=== PATIENT | female | born 1980 | race Caucasian/White ===

== ENCOUNTER 2016-05-19 17:48 | Emergency (ER) | payer OTHER ==
[2016-05-19] MEDS ORDERED: Diphtheria,Pertussis(Acell),Tetanus Vaccine 0.5 ML SDV IM ONE (18:16)
[2016-05-19 18:21] VITALS: BP 118/67
--- NOTE | 2016-05-19 18:21 | EDM.PDOC ---
ED HPI Trauma - General Chief Complaint: Lower Extremity Injury/Pain Stated Complaint: STEPPED ON NAIL Time Seen by Provider: 05/19/16 18:17 Source: Reports: Patient History Limitations: Reports: No limitations - History of Present Illness INITIAL COMMENTS - FREE TEXT/NARRATIVE: PT STATES SHE STEPPED ON NAIL THIS AFTERNOON. NAIL WAS EXPOSED THRU BOARD AND WAS OLD/ELISABETH. WAS WEARING TENNIS SHOES. DENIES ANY OTHER INJURY Occurred When: this afternoon Occurred Where: home Method of Injury: other (STEPPED ON NAIL) Severity: mild Pain/Injury Location: Reports: lower extremity, right Consciousness: Reports: no loss of consciousness Associated Symptoms: Reports: no other symptoms Allergies/ADRs: Allergies No Known Drug Allergies Allergy (Verified 05/19/16 18:21) Cannot Remember Home Medications: Ambulatory Orders Amoxicillin/Clavulanate K [Augmentin 875 MG/125 MG] 1 tab PO Q12HR #14 tablet Review of Systems - Review of Systems Review Of Systems: ROS reveals no pertinent complaints other than HPI. Constitutional: Reports: no symptoms Eyes: Reports: no symptoms Ears: Reports: no symptoms Nose: Reports: no symptoms Mouth/Throat: Reports: no symptoms Respiratory: Reports: No Symptoms Cardiovascular: Reports: no symptoms GI/Abdominal: Reports: No symptoms Genitourinary: Reports: no symptoms Musculoskeletal: Reports: no symptoms Skin: Reports: wound (DORSAL RIGHT FOOT DISTAL ASPECT). Denies: erythema Neurological: Reports: No Symptoms Psychiatric: Reports: no symptoms Trauma Exam - Physical Exam Exam: See Below Exam Limited By: No limitations General Appearance: Reports: alert, WD/WN, no apparent distress Head: Reports: atraumatic, normocephalic Throat/Mouth: Reports: Normal inspection, Normal oropharynx, No airway compromise Respiratory Exam: Reports: no respiratory distress Extremities: Reports: other (PUNCTURE WOUND AT DISTAL DORSAL ASPECT OF RIGHT FOOT. NO ERYTHEMA/ECCHYMOSIS/ EDEMA NOTED) Neurologic: Reports: alert, normal mood/affect, oriented x 3 Skin: Reports: Normal color, Warm/dry Course - Orders/Labs/Meds Orders: Active Orders 24 hr Category Date Time Status Foot 2V Rt [CR] Stat Exams 05/19/16 18:14 Ordered - Radiology Interpretation Free Text/Narrative:: XRAY NEGATIVE FOR FB OR FRACTURE - Re-Assessments/Exams Free Text/Narrative Re-Assessment/Exam: 05/19/16 19:16 PT AFEBRILE, NONTOXIC APPEARING, VSS, WOUND DRESSED. AUGMENTIN RX GIVEN Departure - Departure Time of Disposition: 19:18 Disposition: Home, Self-Care 01 Condition: good Clinical Impression: Puncture wound of skin from metal nail Instructions: Puncture Wound, [id number] Additional Instructions: FOLLOW UP PCP IN NEXT 2-3 DAYS - My Orders Last 24 Hours: My Active Orders 05/19/16 18:14 Foot 2V Rt [CR] Stat - Assessment/Plan Last 24 Hours: My Active Orders 05/19/16 18:14 Foot 2V Rt [CR] Stat Assessment:: NAIL PUNCTURE WOUND TO RIGHT FOOT Plan: AUGMENTIN / F-U WITH PCP
[2016-05-19] MEDS ORDERED: Amoxicillin/Clavulanate K 875-125 MG Tab PO ONE (19:18)
== END 2016-05-19 19:28 | disposition home or self-care (01) ==
LOC: KA.ED 17:48
DX: S91.331A Puncture wound without foreign body, right foot, initial encounter (principal); Z23 Encounter for immunization; W22.8XXA Striking against or struck by other objects, initial encounter; Y92.009 Unspecified place in unspecified non-institutional (private) residence as the place of occurrence of the external cause
CPT/HCPCS: 73620; 90471; 90715; 99283; A9270